=== PATIENT | male | born 2000 | race African-American/Black ===

== ENCOUNTER 2020-09-01 15:53 | Emergency (ER) | payer OTHER ==
[~2020-09-01] VITALS: Ht 175.3 cm; Wt 64.0 kg
[2020-09-01] MEDS ORDERED: HYDROCODONE/ACETAMINOPHEN 5/325MG TABLET PO ONE (16:30)
[2020-09-01 17:23] VITALS: BP 129/78
== END 2020-09-01 17:28 | disposition home or self-care (01) ==
LOC: ER 15:53
DX: M25.551 Pain in right hip (principal); F17.290 Nicotine dependence, other tobacco product, uncomplicated; F12.10 Cannabis abuse, uncomplicated
CPT/HCPCS: 73502; 99283